=== PATIENT | male | born 1990 | race Caucasian/White ===

== ENCOUNTER 2019-04-04 04:57 | Observation (INO) ==
[2019-04-04 05:47] LABS: Basophils % 0.5 %; Eosinophils # 0.1 K/mcL (0.0-0.6); Hematocrit 45.9 % (37.5-50.1); Hemoglobin 15.9 g/dL (12.9-16.9); Immature Granulocytes % 0.3 % (0-4); Lymphocytes # 1.8 K/mcL (0.6-4.6); Lymphocytes % 29.4 %; Mean Corpuscular HGB Conc 34.6 g/dL (31.6-35.5); Mean Corpuscular Volume 86.6 fL (83.0-100.0); Mean Platelet Volume 10.2 fL (9.4-12.4); Monocytes # 0.9 K/mcL (0.0-1.3); Monocytes % 14.2 %; Neutrophils # 3.3 K/mcL (1.6-8.9); Platelet Count 379 K/mcL (140-400); Red Cell Distribution Width 12.5 % (11.5-14.5); Segmented Neutrophils % 54.6 %
[2019-04-04 05:52] LABS: Bilirubin,Urine Negative (Negative); Blood,Urine Negative (Negative); Clarity,Urine Clear (Clear); Color,Urine Yellow (Yellow); Glucose,Urine (UA) Normal (Normal); Ketones,Urine Negative (Negative); Leukocyte Esterase,Urine Small (Negative); Nitrite,Urine Negative (Negative); Protein,Urine Negative (Neg-Trace); Specific Gravity,Urine 1.029 (1.010-1.025); Urobilinogen,Urine Normal (Normal)
[2019-04-04 05:54] LABS: Bacteria,Urine None Seen per hpf (None-Few); Hyaline Casts,Urine None Seen per lpf (None-Few); RBC,Urine 0-3 per hpf (0-3); Squamous Epithelial Cell,Urine Many per lpf (None-Few); WBC,Urine 15-30 per hpf (0-3)
[2019-04-04] MEDS ORDERED: Ketorolac 30 MG/ML VIAL IVP ONE (05:56)
[2019-04-04] MEDS ORDERED: 0.9 % Sodium Chloride 1,000 ML IV ONE (05:56)
[2019-04-04] MEDS ORDERED: Ondansetron 4 MG/2 ML VIAL IVP ONE (05:56)
[2019-04-04] MEDS ORDERED: Isovue-370 500 ML BOTTLE IVP ONE (05:56)
[2019-04-04 06:06] LABS: Alanine Aminotransferase 27 Units/L (7-52); Albumin 4.6 g/dL (3.5-5.7); Albumin/Globulin Ratio 1.4 (1.1-2.2); Alkaline Phosphatase 69 Units/L (34-104); Amylase 76 Units/L (29-103); Aspartate Amino Transferase 17 Units/L (13-39); BUN/Creatinine Ratio 13 (6-26); Bilirubin,Direct 0.2 mg/dL (0.0-0.2); Bilirubin,Indirect 0.5 mg/dL (0.0-1.2); Bilirubin,Total 0.7 mg/dL (0.3-1.0); Blood Urea Nitrogen 13 mg/dL (6-20); Carbon Dioxide 28 mEq/L (23-29); Chloride 102 mEq/L (98-107); Globulin 3.3 g/dL (2.4-3.5); Glucose 111 mg/dL (70-105); Lipase 20 Units/L (11-82); Osmolality,Calculated 287 (280-300); Potassium 4.5 mEq/L (3.5-5.1); Sodium 138 mEq/L (136-145); Total Protein 7.9 g/dL (6.4-8.9); eGFR For African Americans > 60 (> 60); eGFR For Non-African Americans > 60 (> 60)
[2019-04-04] MEDS ORDERED: Piperacillin/Tazobactam 3.375 GM in 0.9 % Sodium Chloride Mini Bag 100 ML IVPB ONE (07:37)
[2019-04-04] MEDS: 0.9 % Sodium Chloride 1,000 ML IV ONE ×2 (08:36→15:31)
[2019-04-04] MEDS ORDERED: 0.9 % Sodium Chloride 1,000 ML IVC SCH (09:30)
[2019-04-04] MEDS ORDERED: *HR* Midazolam HCl 2 MG/2 ML VIAL ONE (11:03)
[2019-04-04] MEDS ORDERED: Lidocaine -MPF 4% 5 ML AMPUL ONE (11:03)
[2019-04-04] MEDS ORDERED: Ondansetron 4 MG/2 ML VIAL ONE (11:03)
[2019-04-04] MEDS ORDERED: *HR* Rocuronium Bromide 50 MG/5 ML VIAL ONE (11:03)
[2019-04-04] MEDS ORDERED: Dexamethasone 4 MG/ML VIAL ONE (11:03)
[2019-04-04] MEDS ORDERED: Lidocaine -MPF 2% 2 ML VIAL ONE (11:03)
[2019-04-04] MEDS ORDERED: *HR* Propofol 200 MG/20 ML VIAL IVP ONE (11:03)
[2019-04-04] MEDS ORDERED: *HR* FentaNYL (PF) 100 MCG/2 ML VIAL ONE ×2 (11:03→12:45)
[2019-04-04] MEDS ORDERED: Acetaminophen IV 1,000 MG/100 ML INFUS..BTL ONE (12:00)
[2019-04-04] MEDS ORDERED: Bupivacaine/EPI 1:200k 0.5%PF 30 ML VIAL ONE (12:00)
[2019-04-04] MEDS ORDERED: Famotidine 20 MG/2 ML VIAL ONE (12:01)
[2019-04-04] MEDS ORDERED: EPHEDrine 50 MG/ML VIAL ONE (12:43)
[2019-04-04] MEDS ORDERED: Neostigmine Methylsulfate 3 MG/3 ML SYRINGE ONE (12:56)
[2019-04-04] MEDS: *HR* OxyCODONE/APAP 5/325 TABLET PO PRN ×2 (15:28→19:31)
[2019-04-04] MEDS ORDERED: Piperacillin/Tazobactam 3.375 GM in 0.9 % Sodium Chloride Mini Bag 100 ML IVPB SCH (16:00)
[2019-04-04] MEDS: Piperacillin/Tazobactam 3.375 GM in 0.9 % Sodium Chloride Mini Bag 100 ML IVPB SCH ×2 (17:41→23:57)
[2019-04-04] MEDS: 0.9 % Sodium Chloride 1,000 ML IVC SCH (19:38)
[2019-04-05] MEDS: *HR* OxyCODONE/APAP 5/325 TABLET PO PRN ×2 (04:06→10:33)
[2019-04-05] MEDS: 0.9 % Sodium Chloride 1,000 ML IVC SCH (08:11)
[2019-04-05] MEDS: Piperacillin/Tazobactam 3.375 GM in 0.9 % Sodium Chloride Mini Bag 100 ML IVPB SCH (10:24)
[2019-04-05 11:27] VITALS: BP 111/68
== END 2019-04-05 13:43 | disposition home or self-care (01) ==
LOC: EMEROOARM 04:57 → 3ANU 04:57
PROVIDERS: ADMIT Surgery; ATTEND Surgery